=== PATIENT | male | born 1980 | race Caucasian/White ===

== ENCOUNTER 2019-04-04 16:36 | Emergency (ER) | payer BC ==
[~2019-04-04] VITALS: Ht 170.2 cm; Wt 86.6 kg
[2019-04-04 16:39] VITALS: BP 138/56
--- NOTE | 2019-04-04 16:44 | NUR ---
PT TO ER LOBBY. ALERT AND AWAKE
--- NOTE | 2019-04-04 17:08 | NUR ---
PT TO BED 5 WITH STEADY GAIT
[2019-04-04 17:29] LABS: BASOPHILS % (AUTO) 0.3 % (0.0-2.0); EOSINOPHILS # (AUTO) 0.1 K/uL (0-0.4); HEMATOCRIT 41.9 % (36-52); HEMOGLOBIN 14.1 g/dL (12.0-18.0); LYMPHOCYTES # (AUTO) 1.4 K/uL (2.0-11.5); LYMPHOCYTES % (AUTO) 23.1 % (20.5-51.1); MEAN CORPUSCULAR HEMOGLOBIN 32 pg (27-31); MEAN CORPUSCULAR HGB CONC 34 g/dL (33-37); MEAN CORPUSCULAR VOLUME 93.9 fL (80-94); MONOCYTES # (AUTO) 0.3 K/uL (0.8-1.0); MONOCYTES % (AUTO) 5.2 % (1.7-9.3); NEUTROPHILS # (AUTO) 4.3 K/uL (1.8-7.7); NEUTROPHILS % (AUTO) 70.4 % (42.2-75.2); PLATELET COUNT (AUTO) 205 K/uL (140-450); RED BLOOD CELL COUNT(AUTO) 4.46 MIL/uL (4.20-6.10); RED CELL DISTRIBUTION WIDTH 12.6 % (11.6-13.7); WHITE BLOOD COUNT (AUTO) 6.1 K/uL (4.8-10.8)
[2019-04-04 17:51] LABS: ANION GAP 10.3 (8-16); CARBON DIOXIDE 30.5 mmol/L (21-32); POTASSIUM 3.8 mmol/L (3.5-5.1)
[2019-04-04 17:51] LABS: BILIRUBIN,URINE NEGATIVE (NEGATIVE); BLOOD, URINE NEGATIVE (NEGATIVE); LEUKOCYTE ESTERASE ,URINE NEGATIVE (NEGATIVE); NITRITE, URINE NEGATIVE (NEGATIVE); PH,URINE 6.5 (5.0-9.0); UGLUCOSE NEGATIVE (NEGATIVE)
[2019-04-04 17:53] LABS: APPEARANCE,URINE CLEAR (CLEAR); COLOR,URINE YELLOW (YELLOW)
[2019-04-04 17:57] LABS: ALBUMIN 4.4 g/dL (3.4-5.0); TOTAL BILIRUBIN 1.1 mg/dL (0.0-1.0)
--- NOTE | 2019-04-04 18:09 | NUR ---
INTERMITTENT RUQ PAIN WITH BOUTS OF LOOSE STOOLS X 1 WK---
[2019-04-04] MEDS ORDERED: LACTULOSE 20 GM/30 ML UDC PO ONE (18:45)
--- NOTE | 2019-04-04 18:45 | NUR ---
RETURNED FROM CT
[2019-04-04 18:56] VITALS: BP 138/56
== END 2019-04-04 18:56 | disposition home or self-care (01) ==
LOC: MED 16:36
DX: K59.00 Constipation, unspecified (principal); R35.0 Frequency of micturition
CPT/HCPCS: 36415; 74176; 76705; 80053; 81003; 83690; 85025; 99284; Q0092

== ENCOUNTER 2019-07-26 14:06 | Emergency (ER) | payer BC ==
[~2019-07-26] VITALS: Ht 172.7 cm; Wt 84.8 kg
[2019-07-26 14:14] VITALS: BP 134/79
--- NOTE | 2019-07-26 14:17 | NUR ---
38 Y/O MALE FROM HOME C/O RUQ PAIN SINCE MARCH WORSENING TODAY. STATES PAIN RADIATES TO RT BACK. WAS SEEN IN DEC AND DIAGNOSED WITH CONSTIPATION. HAS APPOINTMENT WITH GI SPECIALIST, BUT STATES HE CANT HANDLE THE PAIN. STATES NAUSEA. DENIES VOMITING/DIARRHEA. LAST BM THIS MORNING AND NORMAL. ABD SOFT, ROUND, NONTENDER TO PALP. BOWEL SOUNDS PRESENT X 4 QUAD. VSS
--- NOTE | 2019-07-26 14:21 | NUR ---
PT AMBULATED TO RESTROOM FOR COLLECTION OF URINE.
--- NOTE | 2019-07-26 14:30 | NUR ---
DR POWERS EXAMINING PT
[2019-07-26 14:42] VITALS: BP 122/81
--- NOTE | 2019-07-26 14:44 | NUR ---
Patient discharged with v/s stable. Written and verbal after care instructions given and explained. Patient alert, oriented and verbalized understanding of instructions. Ambulatory with steady gait. All questions addressed prior to discharge. ID band removed. Patient advised to follow up with PMD. Rx of ZOFRAN AND MOTRIN given. Patient educated on indication of medication including possible reaction and side effects. Opportunity to ask questions provided and answered.
== END 2019-07-26 14:44 | disposition home or self-care (01) ==
LOC: MED 14:06
DX: R10.11 Right upper quadrant pain (principal); R11.0 Nausea; F12.90 Cannabis use, unspecified, uncomplicated
CPT/HCPCS: 81002; 99283